=== PATIENT | male | born 1990 | race Caucasian/White ===

== ENCOUNTER 2017-01-24 18:45 | Emergency (ER) | payer SELFPAY ==
--- NOTE | 2017-01-24 18:54 | PDOC ---
Rapid Medical Evaluation Medical Evaluation: Allergies Allergy/AdvReac Type Severity Reaction Status Date / Time No Known Allergies Allergy Verified 01/24/17 18:50 01/24/17 18:52 I have performed a brief in-person evaluation of this patient. The patient presents with a chief complaint of: weak, ventura Pertinent physical exam findings:L/S CTAB, HR: RRR, ABD Soft, NT, ND I have ordered the following: Influenza The patient will proceed to the ED for further evaulation>
[2017-01-24 18:55] VITALS: BP 119/57; PULSE 118; TEMP 99.8; BMI 24.4
[2017-01-24] MEDS ORDERED: IBUPROFEN 600 MG TABLET (FP) PO ONE ×2 (19:33→19:35)
--- NOTE | 2017-01-24 19:34 | PDOC ---
History of Present Illness - General Chief Complaint: Headache Stated Complaint: HEADACHE Time Seen by Provider: 01/24/17 18:55 - History of Present Illness Initial Comments: 01/24/17 19:31 CHIEF COMPLAINT: headache, weakness HISTORY OF PRESENT ILLNESS: 26 yo M with hx of Crohn's disease presents to fast track with new onset generalized weakness and headache since this morning. Patient states he felt like he had a fever at home but did not take his temperature. He denies any nausea, vomiting, or diarrhea but reports decreased appetite and po intake. 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 PAST MEDICAL HISTORY: as per HPI FAMILY HISTORY: Denies SOCIAL HISTORY: Denies tobacco, alcohol, illicit drug use. SURGICAL HISTORY: tonsillectomy ALLERGIES: No known drug allergies REVIEW OF SYSTEMS General/Constitutional: Generalized malaise since this morning. HEENT: Denies change in vision. Denies ear pain or discharge. Denies sore throat. Cardiovascular: Denies chest pain or shortness of breath. Respiratory: Denies cough, wheezing. Gastrointestinal: Denies nausea, vomiting, diarrhea. Genitourinary: Denies dysuria, frequency, or change in urination. Musculoskeletal: Denies joint or muscle swelling or pain. Denies neck or back pain. Skin and breasts: Denies rash or easy bruising. Neurologic: Headache. Denies vertigo, loss of consciousness, or loss of sensation. PHYSICAL EXAM General Appearance: Well-appearing, appropriately dressed. No apparent distress. HEENT: Erythematous oropharynx. EOMI, PERRLA. No conjunctival pallor. No photophobia, scleral icterus. Nec: Supple. Negative Brudzinski's sign, negative Kernig's sign. Respiratory/Chest: Lungs CTAB. Cardiovascular: RRR. S1, S2. Gastrointestinal/Abdominal: Normal bowel sounds. Abdomen soft, non-distended. No tenderness or rebound tenderness. No organomegaly, pulsatile mass, guarding, hernia, hepatomegaly, splenomegaly. Musculoskeletal/Extremities: Normal inspection. FROM of all extremities, normal capillary refill. Pelvis Stable. No CVA tenderness. No tenderness to extremities, pedal edema, swelling, erythema or deformity. Integumentary: Appropriate color, dry, warm. No cyanosis, erythema, jaundice or rash Neurologic: bonderizer II-XII intact. Fully oriented, alert. Appropriate mood/affect. Motor strength 5/5. No appreciable EOM palsy, facial droop or sensory deficit. 01/24/17 19:49 Past History - Past Medical History Allergies/Adverse Reactions: Allergies Allergy/AdvReac Type Severity Reaction Status Date / Time No Known Allergies Allergy Verified 01/24/17 18:50 Home Medications: Ambulatory Orders Ibuprofen [Motrin -] 600 mg PO QID PRN #28 tablet 01/24/17 COPD: No GI Disorders: Yes (Crohns) - Surgical History Abdominal Surgery: No - Immunization History Immunization Up to Date: Yes - Suicide/Smoking/Psychosocial Hx Smoking History: Never smoked Information on smoking cessation initiated: No Hx Alcohol Use: No Drug/Substance Use Hx: No Substance Use Type: None *Physical Exam - Vital Signs Last Vital Signs Temp Pulse Resp BP Pulse Ox 99.8 F H 118 H 20 119/57 100 01/24/17 18:50 01/24/17 18:50 01/24/17 18:50 01/24/17 18:50 01/24/17 18:50 Medical Decision Making - Medical Decision Making 01/24/17 19:33 26 yo M with hx of Crohn's disease presents to fast track with new onset generalized weakness and headache since this morning. VS remarkable for temp 99.8 and pulse to 118. -ibuprofen -influenza swab -rapid strep 01/24/17 20:35 Patient reports feeling much better after taking ibuprofen. Advised patient to continue taking Motrin as needed and of signs and symptoms for return to ER; patient verbalized understanding and agrees to plan. *DC/Admit/Observation/Transfer Diagnosis at time of Disposition: Headache Qualifiers: Headache type: unspecified Headache chronicity pattern: acute headache Intractability: not intractable Qualified Code(s): R51 - Headache - Discharge Dispostion Disposition: HOME Condition at time of disposition: Stable Admit: No - Prescriptions Prescriptions: Ibuprofen [Motrin -] 600 mg PO QID PRN #28 tablet PRN Reason: Headache - Referrals - Patient Instructions Printed Discharge Instructions: DI for Viral Syndrome Additional Instructions: Please take Motrin as needed for headache or fever. Please drink plenty of fluids to ensure hydration. If you develop any neck stiffness, fever unrelieved by Motrin, neck stiffness, or any new or worsening symptoms, please return to the ER. - Post Discharge Activity
== END 2017-01-24 21:03 | disposition home or self-care (01) ==
LOC: JERFT 18:45
DX: R51 Headache (principal); Z87.19 Personal history of other diseases of the digestive system
CPT/HCPCS: 87070; 87430; 87804; 99281-25